=== PATIENT | female | born 1950 | race Caucasian/White ===

== ENCOUNTER 2016-04-14 21:09 | Emergency (ER) | payer OTHER ==
[~2016-04-14] VITALS: Ht 160 cm; Wt 81.6 kg
--- OUTSIDE RECORDS SUMMARY | 2016-04-14 21:15 | XMS REPORT | Continuity of Care Document ---
Author Author [facility] Organization [facility] Address Unknown Phone Unavailable Allergies Medications Problems Date Dx Coded Attending Type Code Diagnosis Diagnosed By 03/10/2014 TRINA DUNLAP DO Ot 793.89 03/14/2014 TRINA DUNLAP DO, Ot 793.89 04/05/2014 TRINA DUNLAP DO Ot 793.89 12/06/2014 TRINA DUNLAP DO, Ot V76.12 05/28/2015 TRINA DUNLAP DO, Ot V76.12 OTH SCREEN MAMMO-MALIGN NEOPLASM OF KATIE 01/31/2016 TRINA DUNLAP DO, Ot V76.12 OTH SCREEN MAMMO-MALIGN NEOPLASM OF KATIE 01/31/2016 TRINA DUNLAP DO Ot V76.12 OTH SCREEN MAMMO-MALIGN NEOPLASM OF [place]ATIE 01/31/2016 TRINA DUNLAP DO Ot 793.80 UNSPEC ABNORMAL MAMMOGRAM 01/31/2016 TRINA DUNLAP DO Ot 793.89 OTH (ABN) FINDINGS ON RADIOLOGICAL EXAMI 01/31/2016 TRINA DUNLAP DO Ot V76.12 OTH SCREEN MAMMO-MALIGN NEOPLASM OF [place]ATIE 02/07/2016 TRINA DUNLAP DO Ot V76.12 OTH SCREEN MAMMO-MALIGN NEOPLASM OF KATIE 02/07/2016 TRINA DUNLAP DO Ot V76.12 OTH SCREEN MAMMO-MALIGN NEOPLASM OF KATIE 02/07/2016 TRINA DUNLAP DO Ot 793.80 UNSPEC ABNORMAL MAMMOGRAM 02/07/2016 TRINA DUNLAP DO Ot 793.89 OTH (ABN) FINDINGS ON RADIOLOGICAL EXAMI 02/07/2016 TRINA DUNLAP DO Ot V76.12 OTH SCREEN MAMMO-MALIGN NEOPLASM OF [place]ATIE 02/08/2016 TRINA DUNLAP DO Ot Z12.31 ENCNTR SCREEN MAMMOGRAM FOR MALIGNANT NE 02/20/2016 TRINA DUNLAP DO Ot Z12.31 ENCNTR SCREEN MAMMOGRAM FOR MALIGNANT NE Procedures Results Encounters ACCT No. Visit Date/Time Discharge Status Pt. Type Provider Facility Loc./Unit Complaint [id number] 11/07/2014 11:11:00 2014 23:59:59 CLS Outpatient TRINA DUNLAP DO [facility] RAD SCREENING [id number] 03/08/2014 13:22:00 2014 23:59:59 CLS Outpatient TRINA DUNLAP DO [facility] RAD ABNORMAL MAMMO [id number] 09/05/2013 13:43:00 2013 23:59:59 CLS Outpatient TRINA DUNLAP DO [facility] RAD ABNORMAL MAMMO [id number] 08/16/2013 10:56:00 2013 23:59:59 CLS Outpatient TRINA DUNLAP DO [facility] RAD ROUTINE [id number] 08/10/2012 11:07:00 2012 23:59:59 CLS Outpatient TRINA DUNLAP DO [facility] RAD SCREENING [id number] 2016 21:10:00 ACT Emergency ZURDO CHAUHAN DO [facility] ER CHEST PAIN [id number] 02/07/2016 11:08:00 ACT Outpatient TRINA DUNLAP DO [facility] RAD SCREENING
--- NOTE | 2016-04-14 21:21 | ED Chest Pain ---
General Stated Complaint: CHEST PAIN Source: patient History of Present Illness Time seen by provider: 21:07 Initial Comments PT C/O CHEST PAIN--BEGAN 5 MINUTES AGO--PT IS HERE IN ER WITH [place]HER WHO [place] OF [place] 5 MINUTES AGO PAIN BEGAN MOM WAS DYING AND PT WAS VERY UPSET/DISTRAUGHT PAIN IS ESSENTIALLY GONE NOW--JUST FEELS PRESSURE WITH DEEP BREATHS NO SHORTNESS OF BREATH NO SWELLING IN LEGS/ FEET OR PAIN IN CALVES NO SWEATS NO HISTORY OF SIMILAR HAS HISTORY OF HTN, NO CHANGE IN MEDICATIONS RECENTLY PCP: DR. DUNLAP Allergies and Home Medications Allergies Coded Allergies: cephalexin (Verified Allergy, Intermediate, Hives, 04/14/16) nitrofurantoin (Verified Allergy, Intermediate, Soa, hives, 04/14/16) sulfamethoxazole (Verified Allergy, Mild, Hives, 04/14/16) trimethoprim (Verified Allergy, Mild, Hives, 04/14/16) Home Medications Calcium Carbonate/Vitamin D3 1 Each Capsule 1 EACH PO DAILY (Reported) Levothyroxine Sodium 75 Mcg Tablet #31 75 MG PO DAILY (Reported) Metoprolol Tartrate 100 Mg Tablet #90 100 MG PO DAILY (Reported) [place] 3 Polyunsat Fatty Acids 1,000 Mg Cap 1,000 MG PO DAILY (Reported) Potassium Chloride 20 Meq Tab.er.prt #90 20 MEQ PO DAILY (Reported) Pravastatin Sodium 20 Mg Tablet #30 20 MG PO DAILY (Reported) Triamterene/Hydrochlorothiazid 1 Each Tablet #30 1 TAB PO DAILY (Reported) Ubidecarenone 100 Mg Capsule 100 MG PO Q48H (Reported) Review of Systems Constitutional: no symptoms reported EENTM: No Symptoms Reported Respiratory: No Symptoms Reported Cardiovascular: See HPI Chest Pain Gastrointestinal: No Symptoms Reported Genitourinary: No Symptoms Reported Musculoskeletal: no symptoms reported Skin: no symptoms reported Psychiatric/Neurological: See HPI Endocrine: No Symptoms Reported Hematologic/Lymphatic: No Symptoms Reported Past Ulywnbu-Vlosmx-Zsafeu Hx Patient Social History Alcohol Use: Denies Use Recreational Drug Use: No Smoking Status: Never a Smoker Surgeries HX Surgeries: Yes Surgeries: Gallbladder, Tubal Ligation Respiratory Hx Respiratory Disorders: No Cardiovascular Hx Cardiac Disorders: Yes Cardiac Disorders: High Cholesterol, Hypertension Neurological Hx Neurological Disorders: No Reproductive System [employer] History: Menopausal Genitourinary Hx Genitourinary Disorders: No Gastrointestinal Hx Gastrointestinal Disorders: No Musculoskeletal Hx Musculoskeletal Disorders: No Endocrine Hx Endocrine Disorders: Yes Endocrine Disorders: Hypothyroidsim HEENT HX ENT Disorders: No Cancer Hx Cancer: No Psychosocial Hx Psychiatric Problems: No Integumentary HX Skin/Integumentary Disorder: No Blood Transfusions Hx Blood Disorders: No Physical Exam Vital Signs Vital Sign - Last 12Hours 04/14/16 21:11 Temp 98.7 Pulse 92 Resp 22 B/P 182/100 Pulse Ox 97 O2 Delivery Room Air O2 Flow Rate 2 Capillary Refill : General Appearance: No Apparent Distress WD/WN Anxious (TEARFUL) Neck: Full Range of Motion Normal Inspection Non Tender SuppleNo Carotid Bruit , No JVD Respiratory: Normal Breath Sounds No Accessory Muscle Use No Respiratory Distress Cardiovascular: Regular Rate, Rhythm No Edema No JVD No Murmur Normal Peripheral Pulses Gastrointestinal: Normal Bowel Sounds No Organomegaly No Pulsatile Mass Non Tender Soft Extremity: Normal Capillary Refill Normal Inspection Normal Range of Motion Non Tender No Calf Tenderness No Pedal Edema Neurologic/Psychiatric: Alert Oriented x3 No Motor/Sensory 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 Norm as Tested Skin: Normal Color Warm/Dry Progress/Results/Core Measures Results/Orders Lab Results Laboratory Tests Test 04/14/16 21:15 Range/Units Activated Partial Thromboplast Time 27 24-35 SEC Alanine Aminotransferase (ALT/SGPT) 29 0-55 U/L Albumin 4.2 3.2-4.5 G/DL Alkaline Phosphatase 56 40-136 U/L Amylase Level 46 25-125 U/L Anion Gap 16 H 5-14 MMOL/L Aspartate Amino Transf (AST/SGOT) 27 5-34 U/L B-Type Natriuretic Peptide 10.7 <100.0 PG/ML BUN/Creatinine Ratio 15 Basophils # (Auto) 0.1 0.0-0.1 10^3/uL Basophils (%) (Auto) 1 0-10 % Blood Urea Nitrogen 17 7-18 MG/DL Calcium Level 10.2 H 8.5-10.1 MG/DL Carbon Dioxide Level 23 21-32 MMOL/L Chloride Level 100 98-107 MMOL/L Creatine Kinase MB 3.0 <6.6 NG/ML Creatinine 1.16 0.60-1.30 MG/DL Eosinophils # (Auto) 0.3 0.0-0.3 10^3/uL Eosinophils (%) (Auto) 3 0-10 % Estimat Glomerular Filtration Rate 47 Glucose Level 119 H 70-105 MG/DL Hematocrit 42 35-52 % Hemoglobin 15.0 11.5-16.0 G/DL INR Comment 0.9 0.8-1.4 Lipase 40 8-78 U/L Lymphocytes # (Auto) 4.0 1.0-4.0 X 10^3 Lymphocytes (%) (Auto) 46 H 12-44 % Magnesium Level 2.3 1.8-2.4 MG/DL Mean Corpuscular Hemoglobin 31 25-34 PG Mean Corpuscular Hemoglobin Concent 36 32-36 G/DL Mean Corpuscular Volume 85 80-99 FL Mean Platelet Volume 11.1 H 7.4-10.4 FL Monocytes # (Auto) 1.3 H 0.0-1.0 X 10^3 Monocytes (%) (Auto) 15 H 0-12 % Neutrophils # (Auto) 3.1 1.8-7.8 X 10^3 Neutrophils (%) (Auto) 35 L 42-75 % Platelet Count 231 130-400 10^3/uL Potassium Level 3.5 L 3.6-5.0 MMOL/L Prothrombin Time 11.8 L 12.2-14.7 SEC Red Blood Count 4.88 4.35-5.85 10^6/uL Red Cell Distribution Width 11.7 10.0-14.5 % Sodium Level 139 135-145 MMOL/L Total Bilirubin 0.6 0.1-1.0 MG/DL Total Creatine Kinase 159 29-168 U/L Total Protein 8.2 6.4-8.2 G/DL Troponin I < 0.30 <0.30 NG/ML White Blood Count 8.7 4.3-11.0 10^3/uL My Orders Orders-ZURDO CHAUHAN DO Amylase (04/14/16 21:14) Cbc With Automated Diff (04/14/16 21:14) Comprehensive Metabolic Panel (04/14/16 21:14) Creatine Kinase (04/14/16 21:14) Creatine Kinase Mb (04/14/16 21:14) Lipase (04/14/16 21:14) Partial Thromboplastin Time (04/14/16 21:14) Protime With Inr (04/14/16 21:14) Troponin I (04/14/16 21:14) Chest 1 View, Ap/Pa Only (04/14/16 21:14) O2 (04/14/16 21:14) Ekg Tracing (04/14/16 21:14) BNP (04/14/16 21:14) Monitor-Rhythm Ecg Trace Only (04/14/16 21:14) Magnesium (04/14/16 21:14) Aspirin Chewable Tablet (Baby Aspirin Ch (04/14/16 21:23) Enalaprilat Injection (Vasotec Injection (04/14/16 22:30) Metoprolol Succinate (Xl) Tab (Toprol Xl (04/14/16 22:30) Medications Given in ED Current Medications Medications Dose Ordered Sig/Indy Route Start Time Stop Time Status Last Admin Dose Admin Aspirin 81 mg STK-MED ONCE .ROUTE 04/14/16 21:23 04/14/16 21:25 DC 04/14/16 21:26 81 MG Enalaprilat 2.5 mg ONCE ONCE IV 04/14/16 22:30 04/14/16 22:31 DC 04/14/16 22:42 2.5 MG Vital Signs/I&O Vital Sign - Last 12Hours 04/14/16 04/14/16 04/14/16 04/14/16 21:11 21:11 21:11 23:28 Temp 98.7 97.7 Pulse 92 76 Resp 22 18 B/P 182/100 Pulse Ox 97 99 97 O2 Delivery Room Air Nasal Cannula Nasal Cannula O2 Flow Rate 2 2 Progress Note : Progress Note BP 164/130 ON ARRIVAL--DOWN TO 149/96 AT DISMISSAL NO FURTHER CHEST PAIN, OR ANY OTHER SYMPTOMS AND FEELS FINE PT DECLINES ADMIT--STATES SHE FEELS IT IS TOTALLY STRESS-RELATED, AND WAS ONLY HER MOTHER WAS TAKING HER LAST BREATHS, AND PAIN/PRESSURE WENT AWAY ONCE SHE HAD FINALLY PASSED. PT IS MUCH CALMER NOW, AND KNOWS HER MOTHER IS IN A BETTER PLACE, AND FEELS COMFORTABLE GOING HOME. ECG Initial ECG Impression Time: 21:13 Initial ECG Rate: 94 Initial ECG Rhythm: Normal Sinus Initial ECG Impression: Normal Initial ECG Comparisson: No Previous ECG Available Diagnostic Imaging Comments CXR--NO ACUTE PROCESS, PER RADIOLOGIST REPORT @ 1758 Reviewed: Reviewed by Me Departure Impression Impression: Primary Impression: Chest pain Additional Impressions: SEVERE EMOTIONAL STRESS HTN (hypertension) Situational anxiety Disposition: HOME, SELF-CARE Condition: Improved Departure-Patient Inst. Referrals: TRINA DUNLAP DO (PCP/Family) Primary Care Physician Patient Instructions: Chest Pain (DC), High Blood Pressure (DC), High Blood Pressure Emergencies, High Blood Pressure in Adults Add. Discharge Instructions: TAKE YOUR MEDICATIONS PRESCRIBED FOLLOW UP WITH DR. DUNLAP TOMORROW FOR FURTHER CARE RETURN TO ER IF SYMPTOMS RETURN. ZURDO CHAUHAN DO Apr 14, 2016 21:21
[2016-04-14] MEDS ORDERED: ASPIRIN 81 MG CHEW (CHILDREN'S ASA) ONE (21:23)
[2016-04-14 21:46] LABS: BASOPHILS # (AUTO) 0.1 10^3/uL (0.0-0.1); BASOPHILS % (AUTO) 1 % (0-10); EOSINOPHILS # (AUTO) 0.3 10^3/uL (0.0-0.3); EOSINOPHILS % (AUTO) 3 % (0-10); LYMPHOCYTES % (AUTO) 46 % (12-44); MEAN CORPUSCULAR HEMOGLOBIN 31 PG (25-34); MEAN CORPUSCULAR HGB CONC 36 G/DL (32-36); MEAN CORPUSCULAR VOLUME 85 FL (80-99); MEAN PLATELET VOLUME 11.1 FL (7.4-10.4); MONOCYTES # (AUTO) 1.3 X 10^3 (0.0-1.0); MONOCYTES % (AUTO) 15 % (0-12); NEUTROPHILS # (AUTO) 3.1 X 10^3 (1.8-7.8); NEUTROPHILS % (AUTO) 35 % (42-75); PLATELET COUNT 231 10^3/uL (130-400); RED BLOOD COUNT 4.88 10^6/uL (4.35-5.85); RED CELL DISTRIBUTION WIDTH 11.7 % (10.0-14.5); WHITE BLOOD COUNT 8.7 10^3/uL (4.3-11.0)
--- NOTE | 2016-04-14 21:51 | Diagnostic Imaging Report ---
EXAM: CHEST 1 VIEW, AP/PA ONLY INDICATION: Chest pain. COMPARISON: None. FINDINGS: Normal heart size and pulmonary vascularity. Calcified aorta. No focal pulmonary opacity, pleural effusion or pneumothorax. No acute osseous findings. IMPRESSION: No acute cardiopulmonary process. Dictated by: Dictated on workstation # [id number]
[2016-04-14] MEDS ORDERED: POTA20TA15 PO (21:55)
[2016-04-14] MEDS ORDERED: LEVO75TA6 PO (21:55)
[2016-04-14] MEDS ORDERED: OMG1KC PO (21:55)
[2016-04-14] MEDS ORDERED: METO100T2 PO (21:55)
[2016-04-14] MEDS ORDERED: UBID100C44 PO (21:55)
[2016-04-14] MEDS ORDERED: PRAV20TA3 PO (21:55)
[2016-04-14] MEDS ORDERED: CALC1CAP21 PO (21:55)
[2016-04-14] MEDS ORDERED: TRIA1TAB5 PO (21:55)
[2016-04-14 22:00] LABS: INR 0.9 (0.8-1.4); PROTHROMBIN TIME PATIENT 11.8 SEC (12.2-14.7)
[2016-04-14 22:13] LABS: ALANINE AMINOTRANSFERASE 29 U/L (0-55); ALBUMIN 4.2 G/DL (3.2-4.5); AMYLASE 46 U/L (25-125); ANION GAP 16 MMOL/L (5-14); ASPARTATE AMINO TRANSFERASE 27 U/L (5-34); BILIRUBIN,TOTAL 0.6 MG/DL (0.1-1.0); BLOOD UREA NITROGEN 17 MG/DL (7-18); BUN/CREATININE RATIO 15; CALCIUM 10.2 MG/DL (8.5-10.1); CARBON DIOXIDE 23 MMOL/L (21-32); CHLORIDE 100 MMOL/L (98-107); CREATINE KINASE 159 U/L (29-168); CREATININE SERUM 1.16 MG/DL (0.60-1.30); GFR ESTIMATED 47; GLUCOSE 119 MG/DL (70-105); LIPASE 40 U/L (8-78); MAGNESIUM 2.3 MG/DL (1.8-2.4); POTASSIUM 3.5 MMOL/L (3.6-5.0); SODIUM 139 MMOL/L (135-145); TOTAL PROTEIN 8.2 G/DL (6.4-8.2)
[2016-04-14 22:20] LABS: TROPONIN I < 0.30 NG/ML (<0.30)
[2016-04-14] MEDS ORDERED: ENALAPRILAT 2.5 MG/2 ML (VASOTEC) VIAL IV ONE (22:30)
[2016-04-14] MEDS ORDERED: meTOproloL SUCCINATE 50 MG (TOPROL XL) TAB PO SCH (22:30)
[2016-04-14 23:28] VITALS: BP 149/96
== END 2016-04-14 23:31 | disposition home or self-care (01) ==
LOC: EDUNIT# 21:09 → ER 21:10
DX: F43.8 Other reactions to severe stress (principal); I10 Essential (primary) hypertension
CPT/HCPCS: 36415; 71010; 80053; 82150; 82550; 82553; 83690; 83735; 83880; 84484; 85025; 85610; 85730; 93005; 93041; 96374

== ENCOUNTER → 2017-02-25 | Outpatient (CLI) | payer MEDICARE, OTHER ==
[~2017-02-25] MED LIST: CALC1CAP21 PO; LEVO75TA6 PO; METO100T12 PO; OMG1KC PO; POTA20TA15 PO; PRAV20TA3 PO; TRIA1TAB5 PO; UBID100C44 PO
--- NOTE | 2017-02-25 19:11 | Diagnostic Imaging Report ---
INDICATION: Digital mammogram bilateral screening. This study was compared to the prior exams from 02/07/16 to 09/05/13. At this time, there are no current complaints. The current study was also evaluated with a Computer Aided Detection (CAD) system. FINDINGS: The fibroglandular tissue in both breasts is heterogeneously dense. This does limit the sensitivity of this exam. Overall, there does not appear to have been any significant change when compared to the prior study. No primary or secondary sign of malignancy is noted. IMPRESSION: There is no radiographic evidence for malignancy. ACR BI-RADS Category 1: Negative. Result letter will be mailed to the patient. Note: At least 10% of breast cancer is not imaged by mammography. Dictated on workstation # [id number]
== END ==
LOC: RAD 11:17
PROVIDERS: ATTEND Internal Medicine
DX: Z12.31 Encounter for screening mammogram for malignant neoplasm of breast (principal)
CPT/HCPCS: 77067

== ENCOUNTER → 2017-07-23 | Outpatient (CLI) | payer MEDICARE, OTHER ==
--- NOTE | 2017-07-23 16:20 | Diagnostic Imaging Report ---
Indication: Menopausal. Comparison is made with prior DEXA study from 07/09/2011. Bone mineral analysis of the lumbar spine and both hips was performed. Bone mineral density of the lumbar spine L2-L4 is 1.298 with a T score of 0.8. This compares with 1.298 and 0.8 on prior. Bone mineral density of the left femoral neck is 0.931 with T score -0.8. This compares with 0.909 and -0.9. Bone mineral density right femoral neck is 0.976 with T score -0.4. Comparison 0.961 and -0.6. Impression: Normal bone mineral density of the lumbar spine and bilateral femoral necks. Dictated by: Dictated on workstation # [id number]
--- NOTE | 2017-07-23 17:11 | Diagnostic Imaging Report ---
INDICATION: Foot pain and swelling. History of gout. COMPARISON: None available. TECHNIQUE: Three non-weightbearing views of the right foot were obtained. FINDINGS: Potential periarticular erosion involving the lateral aspect of the first metatarsal head. Soft tissue prominence around the medial aspect of the first metatarsal head is also present. No additional periarticular erosions. No fracture. No structural changes of metatarsal stress fracture. IMPRESSION: 1. Potential periarticular erosion of the first metatarsal head which can be seen with gout. Dictated by: Dictated on workstation # [id number]
== END ==
LOC: RAD 10:59
PROVIDERS: ATTEND Internal Medicine
DX: M81.0 Age-related osteoporosis without current pathological fracture (principal); M85.871 Other specified disorders of bone density and structure, right ankle and foot; M79.89 Other specified soft tissue disorders; Z87.39 Personal history of other diseases of the musculoskeletal system and connective tissue; Z78.0 Asymptomatic menopausal state
CPT/HCPCS: 73630; 77080

== ENCOUNTER → 2018-03-10 | Outpatient (CLI) | payer MEDICARE, OTHER ==
--- NOTE | 2018-03-10 19:24 | Diagnostic Imaging Report ---
EXAMINATION: Digital mammogram bilateral screening with 3D tomosynthesis. The current study was also evaluated with a Computer Aided Detection (CAD) system. INDICATION: Screening. This study was compared to the prior exams of 02/25/2017, 02/07/2016, and 11/07/2014. At this time, there are no current complaints. FINDINGS: The fibroglandular tissue in both breasts is heterogeneously dense. This does limit the sensitivity of this exam. On the MLO view of the right breast in the superior aspect of the breast approximately 10 cm from the nipple, there is a group of calcific-like densities. This group of calcific densities cannot be identified on either the CC or XCC views and is possible that this could be related to a skin lesion. Even so, I would recommend that the patient return for repeat MLO view of the right breast. A compression view should also be performed as well as a true lateral view. I would recommend that the patient's skin be inspected for skin lesion as well. The overall appearance of the breasts has not changed significantly otherwise. There is no primary or secondary sign of malignancy noted. IMPRESSION: The calcific-like densities seen on the MLO view of the right breast may be related to a skin lesion. Even so, additional imaging will be recommended. ACR BI-RADS Category 0: Incomplete. (Needs additional imaging evaluation). Result letter will be mailed to the patient. Note: At least 10% of breast cancer is not imaged by mammography. Dictated on workstation # [id number]
== END ==
LOC: RAD 11:22
PROVIDERS: ATTEND Internal Medicine
DX: Z12.31 Encounter for screening mammogram for malignant neoplasm of breast (principal); R92.8 Other abnormal and inconclusive findings on diagnostic imaging of breast
CPT/HCPCS: 77067

== ENCOUNTER → 2018-03-31 | Outpatient (CLI) | payer MEDICARE, OTHER ==
--- NOTE | 2018-03-31 14:45 | Diagnostic Imaging Report ---
INDICATION: Right breast calcifications. Patient presents for additional views. CORRELATION is made with recent screening study from 03/10/2018. FINDINGS: Unilateral right 2-D and 3-D diagnostic mammography was performed including a repeat MLO view, conventional 90 degree lateral view as well as magnification ML view. A marker was placed on a skin lesion in the upper right breast, as well. This skin lesion does correspond to the calcifications noted on the screening study. No suspicious abnormality is identified. No other abnormalities are detected. IMPRESSION: BI-RADS 2 The area of calcifications noted on screening mammogram do correspond to a skin lesion. The patient may return to routine annual screening mammography. ACR BI-RADS Category 2: Benign findings. Result letter will be mailed to the patient. Note: At least 10% of breast cancer is not imaged by mammography. Dictated by: Dictated on workstation # [id number]
== END ==
LOC: RAD 08:45
PROVIDERS: ATTEND Internal Medicine
DX: R92.1 Mammographic calcification found on diagnostic imaging of breast (principal)

== ENCOUNTER → 2019-09-07 | Outpatient (CLI) | payer MEDICARE, OTHER ==
--- NOTE | 2019-09-08 12:13 | Diagnostic Imaging Report ---
EXAMINATION: Digital mammogram INDICATION: Bilateral screening This study was compared to the prior exams of 03/10/2018, 02/25/2017 and 02/07/2016. At this time there are no current complaints. The fibroglandular tissue in both breasts is heterogeneously dense. This does limit the sensitivity of this exam. Overall, there does not appear to have been any significant change since the prior studies. There is no primary or secondary sign of malignancy noted. As noted on the prior exam, there are multiple skin lesions involving both breasts. IMPRESSION: There is no evidence of malignancy. ACR BI-RADS Category 1: Negative. Result letter will be mailed to the patient. Note: At least 10% of breast cancer is not imaged by mammography. Dictated by: Dictated on workstation # [id number]
== END ==
LOC: RAD 11:15
PROVIDERS: ATTEND Internal Medicine
DX: Z12.31 Encounter for screening mammogram for malignant neoplasm of breast (principal)
CPT/HCPCS: 77063; 77067

== ENCOUNTER → 2020-09-25 | Outpatient (CLI) | payer MEDICARE, OTHER ==
--- NOTE | 2020-09-25 16:32 | Diagnostic Imaging Report ---
INDICATION: Routine screening. COMPARISON: 09/07/2019 and 03/10/2018. TECHNIQUE: 2D and 3D bilateral screening mammography was performed with CAD. FINDINGS: Both breasts are heterogeneously dense, limiting the sensitivity of mammography. The parenchymal pattern is stable. No mass or malignant-appearing microcalcifications are seen. There are benign calcifications noted. The axillae are unremarkable. IMPRESSION: No mammographic features suspicious for malignancy are identified. ACR BI-RADS Category 2: Benign findings. Result letter will be mailed to the patient. Note: At least 10% of breast cancer is not imaged by mammography. Dictated by: Dictated on workstation # [id number]
== END ==
LOC: RAD 13:01
PROVIDERS: ATTEND Internal Medicine
DX: Z12.31 Encounter for screening mammogram for malignant neoplasm of breast (principal)
CPT/HCPCS: 77063; 77067

== ENCOUNTER → 2021-11-22 | Outpatient (CLI) | payer MEDICARE, OTHER ==
[~2021-11-22] MED LIST changes: +POTA-179 PO; -POTA20TA15 PO
--- NOTE | 2021-11-22 16:45 | Diagnostic Imaging Report ---
Indication: Routine screening. Comparison is made with prior mammograms from 09/25/2020 and 09/07/2019. 2-D and 3-D bilateral screening mammography was performed with CAD. Both breasts are heterogeneously dense, limiting the sensitivity of mammography. The parenchymal pattern is stable. There are benign calcifications bilaterally. No dominant mass or malignant appearing microcalcifications are seen. The axillae are unremarkable. IMPRESSION: BI-RADS Category 2 No mammographic features suspicious for malignancy are identified. ACR BI-RADS Category 2: Benign findings. Result letter will be mailed to the patient. Note: At least 10% of breast cancer is not imaged by mammography. Dictated by: Dictated on workstation # [id number]
== END ==
LOC: RAD 11:18
PROVIDERS: ATTEND Internal Medicine
DX: Z12.31 Encounter for screening mammogram for malignant neoplasm of breast (principal)
CPT/HCPCS: 77063; 77067